=== PATIENT | male | born 1950 | race Caucasian/White ===

== ENCOUNTER → 2019-07-15 | Outpatient (CLI) | payer MEDICARE ==
--- NOTE | 2019-07-15 14:19 | Diagnostic Imaging Report ---
Chest, PA and lateral. History: COPD. Comparison: None available. Discussion: The heart is within normal limits size. The mediastinal and hilar contours are unremarkable. The lungs are hyperinflated compatible with COPD. A calcified granuloma is noted right midlung zone. Calcified right hilar lymph nodes are also present. There is no focal consolidation, sizable pleural effusion, or pneumothorax. IMPRESSION: COPD without radiographic evidence of acute cardiopulmonary process. Signed by: Conrad Rdz MD on 07/15/2019 2:17 PM
== END ==
LOC: RAD 13:36
PROVIDERS: ATTEND Family Medicine
DX: J44.9 Chronic obstructive pulmonary disease, unspecified (principal); M51.36 Other intervertebral disc degeneration, lumbar region; L29.1 Pruritus scroti
CPT/HCPCS: 71046